=== PATIENT | female | born 1950 | race American Indian/Alaskan Native ===

== ENCOUNTER 2019-03-09 10:59 | Outpatient (CLI) | payer OTHER | END 2019-03-09 11:00 | disposition home or self-care (01) | LOC: C.MAMMO 11:00 | DX: Z12.31 Encounter for screening mammogram for malignant neoplasm of breast (principal) ==

== ENCOUNTER 2019-04-03 10:54 | Outpatient (CLI) | payer OTHER | END 2019-04-03 10:55 | disposition home or self-care (01) | LOC: C.MAMMO 10:54 | DX: R92.8 Other abnormal and inconclusive findings on diagnostic imaging of breast (principal); N63.0 Unspecified lump in unspecified breast ==